=== PATIENT | male | born 1995 | race Caucasian/White ===

== ENCOUNTER 2018-04-09 17:38 | Emergency (ER) | payer MEDICAID ==
[~2018-04-09] VITALS: Ht 180.3 cm; Wt 85.3 kg
[2018-04-09 17:42] VITALS: BP 143/85
--- NOTE | 2018-04-09 17:44 | NUR ---
PT AMBULATES TO BED 11
--- NOTE | 2018-04-09 18:00 | NUR ---
PATIENT PRESENTS TO ED WITH C/O PRODUCTIVE COUGH, CHEST CONGESTION, FATIGUE X 1WK FULL CLEAR SPEECH WITH NO ACCESSORY MUSCLE USE NOTED . DENIES N/V/D; SKIN IS PINK/WARM/DRY; AAOX4 WITH EVEN AND STEADY GAIT; LUNGS CLEAR BL; HR EVEN AND REGULAR; PT DENIES ANY FEVER, CP, AT THIS TIME; PATIENT STATES PAIN OF 0/10 AT THIS TIME; VSS; PATIENT POSITIONED FOR COMFORT; HOB ELEVATED; BEDRAILS UP X2; BED DOWN. ER MD MADE AWARE OF PT STATUS.
--- NOTE | 2018-04-09 18:10 | NUR ---
Patient being evaluated by physician at bedside.
[2018-04-09] MEDS ORDERED: methylPREDNISolone SS 125 MG/2 ML VIAL IM ONE (18:20)
[2018-04-09] MEDS ORDERED: ALBUTEROL SULFATE/IPRATROPIU 3 ML SOL IH ONE (18:20)
--- NOTE | 2018-04-09 18:45 | NUR ---
PATIENT REFUSED HHN TX. NO SOB OR DISTRESS NOTED. DR. ZARAGOZA INFORMED.
--- NOTE | 2018-04-09 19:06 | NUR ---
Patient discharged with v/s stable. Written and verbal after care instructions given and explained. Patient alert, oriented and verbalized understanding of instructions. Ambulatory with steady gait. All questions addressed prior to discharge. ID band removed. Patient advised to follow up with PMD. Rx of ZYRTEC/PREDNISONE/PHENERGAN/ALBUTEROL given. Patient educated on indication of medication including possible reaction and side effects. Opportunity to ask questions provided and answered.
[2018-04-09 19:07] VITALS: BP 126/78
== END 2018-04-09 19:07 | disposition home or self-care (01) ==
LOC: MED 17:38
DX: J20.9 Acute bronchitis, unspecified (principal); J45.909 Unspecified asthma, uncomplicated
CPT/HCPCS: 96372; 99283; J2930; J7620

== ENCOUNTER 2020-11-22 18:31 | Emergency (ER) | payer OTHER, MEDICAID, SELFPAY ==
[~2020-11-22] VITALS: Ht 182.9 cm; Wt 81.6 kg
[2020-11-22 18:51] VITALS: BP 133/73
--- NOTE | 2020-11-22 19:03 | NUR ---
C/O 10/25 SORE THROAT, FEVER, DIARRHEA X 2 DAYS. PMH: AUTISM
[2020-11-22] MEDS ORDERED: LOPE1TAB14 PO (19:22)
[2020-11-22] MEDS ORDERED: IBUP-2213 PO (19:22)
[2020-11-22] MEDS ORDERED: PHEN177S23 PO (19:22)
[2020-11-22 20:05] VITALS: BP 133/73
--- NOTE | 2020-11-22 20:05 | NUR ---
Patient discharged with v/s stable. Written and verbal after care instructions given and explained. Patient verbalized understanding. Ambulatory with steady gait. All questions addressed prior to discharge. Advised to follow up with PMD.
== END 2020-11-22 20:05 | disposition home or self-care (01) ==
LOC: MED 18:31
DX: R19.7 Diarrhea, unspecified (principal); Z20.822 Contact with and (suspected) exposure to COVID-19; M79.10 Myalgia, unspecified site; J45.909 Unspecified asthma, uncomplicated; F84.0 Autistic disorder; Z79.899 Other long term (current) drug therapy
CPT/HCPCS: 99283; U0003

== ENCOUNTER 2021-10-29 21:05 | Emergency (ER) | payer OTHER, MEDICAID ==
[~2021-10-29] VITALS: Ht 182.9 cm; Wt 90.7 kg
[~2021-10-29 21:05] MED LIST: IBUP-2213 PO; LOPE1TAB14 PO; PHEN177S23 PO
[2021-10-29 21:32] VITALS: BP 134/81
--- NOTE | 2021-10-29 23:45 | NUR ---
Patient returned back from CT scan via wheelchair.
--- NOTE | 2021-10-29 23:47 | NUR ---
Blood for labwork drawn from right arm per batcher operator. Patient tolerated well.
[2021-10-29 23:54] LABS: BASOPHILS # (AUTO) 0.1 K/uL (0.00-0.22); BASOPHILS % (AUTO) 1.2 % (0.0-2.0); EOSINOPHILS # (AUTO) 0.2 K/uL (0-0.4); EOSINOPHILS % (AUTO) 1.8 % (0.0-4.0); HEMATOCRIT 46.5 % (36-52); HEMOGLOBIN 15.7 g/dL (12.0-18.0); LYMPHOCYTES # (AUTO) 2.7 K/uL (2.0-11.5); LYMPHOCYTES % (AUTO) 22.6 % (20.5-51.1); MEAN CORPUSCULAR HEMOGLOBIN 31 pg (27-31); MEAN CORPUSCULAR HGB CONC 34 g/dL (33-37); MEAN CORPUSCULAR VOLUME 92.3 fL (80-94); MONOCYTES # (AUTO) 0.7 K/uL (0.8-1.0); NEUTROPHILS % (AUTO) 68.4 % (42.2-75.2); PLATELET COUNT (AUTO) 381 K/uL (140-450); RED BLOOD CELL COUNT(AUTO) 5.04 MIL/uL (4.20-6.10); RED CELL DISTRIBUTION WIDTH 13.6 % (11.6-13.7); WHITE BLOOD COUNT (AUTO) 11.8 K/uL (4.8-10.8)
[2021-10-30 00:13] LABS: ALBUMIN 4.5 g/dL (3.4-5.0); ANION GAP 13.6 (8-16); CARBON DIOXIDE 28.2 mmol/L (21-32); CREATININE 0.9 mg/dL (0.6-1.3); POTASSIUM 3.8 mmol/L (3.5-5.1); TOTAL BILIRUBIN 0.6 mg/dL (0.0-1.0)
[2021-10-30 00:25] LABS: APPEARANCE,URINE CLEAR (CLEAR); BILIRUBIN,URINE NEGATIVE (NEGATIVE); BLOOD, URINE NEGATIVE (NEGATIVE); COLOR,URINE YELLOW (YELLOW); LEUKOCYTE ESTERASE ,URINE NEGATIVE (NEGATIVE); NITRITE, URINE NEGATIVE (NEGATIVE); UGLUCOSE NEGATIVE (NEGATIVE)
--- NOTE | 2021-10-30 00:54 | NUR ---
Patient ambulated to bed 11 with his mother.
--- NOTE | 2021-10-30 00:56 | NUR ---
Patient being evaluated by physician at bedside.
[2021-10-30 01:00] VITALS: BP 129/78
--- NOTE | 2021-10-30 01:00 | NUR ---
25/M BIB MOTHER FROM HOME C/O DIARRHEA AND LUQ PAIN [id number]. PER PATIENT HE HAS NO PAIN AT THIS TIME, BUT WHEN HE GETS THE INTERMITTENT PAIN IT IS 7/10 AND SHARP. PATIENT STATED THAT HIS LAST BOWEL MOVEMENT WAS "WATERY AND LOOSE". PER MOTHER PATIENT HAS ALSO HAD FEVER. PT IS AFEBRILE AT THIS TIME. DENIES ANYONE ELSE AT HOME WITH SIMILAR SYMPT. RR EVEN AND UNLABORED. DOESNT APPEAR TO BE IN DISTRESS. PATIENT PLACED IN BED AND ON MONITOR. BED LOW AND LOCKED. SIDE RAILS UP X1. MOTHER SITTING AT BEDSIDE. PMHX AUTISM NKA
--- NOTE | 2021-10-30 01:58 | NUR ---
Patient does not wish to proceed with medical care recommended by DR. HARTLEY. Patient given information related to possible complications, up to and including , which could occur as a result of leaving hospital at this time. Patient verbalizes understanding of risks involved leaving against medical advice. Patient has signed AMA form.
== END 2021-10-30 01:58 | disposition left against medical advice (07) ==
LOC: MED 21:05
DX: R19.7 Diarrhea, unspecified (principal); R10.12 Left upper quadrant pain; J45.909 Unspecified asthma, uncomplicated
CPT/HCPCS: 36415; 80053; 81003; 83690; 85025; 99284